=== PATIENT | female | born 1955 | race Caucasian/White ===

== ENCOUNTER → 2020-11-07 12:42 | Outpatient (CLI) | payer MEDICARE, OTHER, SELFPAY ==
[2020-10-20 15:54] VITALS: BMI 27.1
--- NOTE | 2020-11-07 12:43 | ECHOD_ITS ---
Reason For Study: CVA Procedure This was a 2D Doppler, Color Flow transthoracic echocardiogram. The exam was of adequate technical quality. Exam performed in department. Left Ventricle Normal LV size. Left ventricular systolic function is normal. The estimated ejection fraction is 60 %. No evidence for diastolic dysfunction. No regional wall motion abnormalities noted. Right Ventricle Normal RV size. Normal systolic function. Atria Borderline to mildly enlarged left atrium. Normal right atrium. No doppler evidence for ASD. Bubble contrast study negative for right to left interatrial shunt. Mitral Valve There is mild mitral annular calcification. Extension of the mitral annular calcification on the base of the posterior mitral valve leaflet. Trivial mitral valve insufficiency. Tricuspid Valve Normal tricuspid valve. Trivial tricuspid valve insufficiency. Right ventricular systolic pressure estimated to be 26 mmHg. Aortic Valve Trisinus/trileaflet aortic valve. Normal aortic valve. Pulmonic Valve The pulmonic valve is not well visualized. Trivial pulmonic valve insufficiency. Great Vessels Normal sized aortic root. Pericardium/Pleural No pericardial effusion. Medication 22 gauge I.V. with prn adaptor inserted into right arm. Performed a rapid injection of agitated mix of 9 cc saline and 1cc air to assess for atrial septal defect. MMode/2D Measurements & Calculations LVIDd: 4.6 cm IVSd: 1.0 cm Ao root diam: 3.0 cm LVIDs: 3.5 cm LVPWd: 1.0 cm RVDd: 3.4 cm FS: 23.3 % LAV(MOD-bp): 48.4 ml LA A4 area: 17.6 cm2 LA dimension(2D): 4.1 cm LAV(MOD-bp) Indexed: 26.7 ml/m2 LAV(MOD-sp2): 45.7 ml LAV(MOD-sp4): 50.3 ml RA A4 area: 13.7 cm2 Doppler Measurements & Calculations MV E max mao: 67.8 cm/sec Lat Peak E' Mao: 6.0 cm/sec Med Peak E' Mao: 7.9 cm/sec MV A max mao: 130.6 cm/sec E/E' lat: 11.3 E/E' med: 8.6 MV E/A: 0.52 Ao V2 max: 155.0 cm/sec LV V1 max: 108.8 cm/sec PA V2 max: 78.1 cm/sec Ao max P.6 mmHg LV V1 max P.7 mmHg TR max mao: 239.3 cm/sec TR max P.9 mmHg Interpretation Summary Left ventricular systolic function is normal. The estimated ejection fraction is 60 %. Borderline to mildly enlarged left atrium. There is mild mitral annular calcification. Extension of the mitral annular calcification on the base of the posterior mitral valve leaflet. Trivial mitral valve insufficiency. Trivial tricuspid valve insufficiency. Trivial pulmonic valve insufficiency. Right ventricular systolic pressure estimated to be 26 mmHg. No evidence for diastolic dysfunction. Ordering Physician: Prem Haley Referring Physician: Sadie Samuel Performed By: Apple Hernandez, NATALIA, RVT
== END ==
PROVIDERS: PCP Internal Medicine; Referring Provider Internal Medicine Cardiovascular Disease; Visit Provider Internal Medicine Cardiovascular Disease
DX: R07.89 Other chest pain (principal); Z86.73 Personal history of transient ischemic attack (TIA), and cerebral infarction without residual deficits
CPT/HCPCS: 93306; A4216

== ENCOUNTER → 2022-04-27 | Outpatient (CLI) | payer MEDICARE, OTHER, SELFPAY ==
--- NOTE | 2022-04-27 12:32 | CDU_ITS ---
Reason For Study: DIZZINESS Rt. Velocities/BP Lt. Velocities/BP Prox CCA 81.6/13.8 cm/sec. Prox CCA 99.0/20.4 cm/sec. Mid CCA 66.0/13.8 cm/sec. Mid CCA 78.1/20.4 cm/sec. Dist CCA 53.8/7.5 cm/sec. Dist CCA 65.8/16.7 cm/sec. Prox ICA 53.8/16.0 cm/sec. Prox ICA 51.5/12.0 cm/sec. Mid ICA 69.38/20.7 cm/sec. Mid ICA 58.1/17.5 cm/sec. Dist ICA 70.8/26.4 cm/sec. Dist ICA 59.2/21.9 cm/sec. Rt. ICA/CCA = 70.8/66.0=1.1. Lt. ICA/CCA = 59.2/78.1=0.8. Prox ECA 68.9/12.2 cm/sec. Prox ECA 67.1/10.6 cm/sec. Rt. Vert. 46.2/14.7 cm/sec. Lt. Vert. 33.1/9.5 cm/sec. Right Extracranial There is homogeneous, smooth atherosclerotic plaque noted in the right common carotid artery. There is heterogeneous, irregular atherosclerotic plaque noted in the right internal carotid artery. There is intimal thickening but no significant atherosclerotic plaque noted in the right external carotid artery. Antegrade flow is noted in the right vertebral artery. Left Extracranial There is homogeneous, smooth atherosclerotic plaque noted in the left common carotid artery. There is heterogeneous, irregular atherosclerotic plaque noted in the left internal carotid artery. There is intimal thickening but no significant atherosclerotic plaque noted in the left external carotid artery. Antegrade flow is noted in the left vertebral artery. Procedure Carotid Duplex 62150. Exam performed in department. VL/Carotid Duplex Ultrasound Interpretation Summary Irregular calcific plaque at the proximal right internal carotid artery with le ss than 50% stenosis Less than 50% stenosis right external carotid artery Irregular calcific plaque with shadowing at the proximal left internal carotid artery with less than 50% stenosis Less than 50% stenosis left external carotid artery Patent and antegrade vertebral arteries bilaterally Ordering Physician: Pepito Ruiz Referring Physician: Everardo Gan Performed By: Apple Hernandez, NATALIA, RVT
== END | disposition home or self-care (01) ==
LOC: CVS 12:30
PROVIDERS: PCP Family Medicine; Referring Provider Nurse Practitioner Family; Visit Provider Nurse Practitioner Family
DX: I65.22 Occlusion and stenosis of left carotid artery (principal); R42 Dizziness and giddiness
CPT/HCPCS: 93880